=== PATIENT | female | born 1995 | race Caucasian/White ===

== ENCOUNTER 2018-11-21 23:06 | Emergency (ER) | payer OTHER ==
[~2018-11-21] VITALS: Ht 154.9 cm; Wt 59.0 kg
[2018-11-21 23:07] VITALS: BP 119/62
== END 2018-11-22 00:01 | disposition home or self-care (01) ==
LOC: ER 23:06
DX: S61.211A Laceration without foreign body of left index finger without damage to nail, initial encounter (principal); S61.213A Laceration without foreign body of left middle finger without damage to nail, initial encounter; W26.0XXA Contact with knife, initial encounter; Y92.89 Other specified places as the place of occurrence of the external cause; Y93.89 Activity, other specified; Y99.8 Other external cause status

== ENCOUNTER 2020-10-16 11:52 | Inpatient (IN) | payer OTHER ==
[~2020-10-16] VITALS: Ht 154.9 cm; Wt 64.4 kg
[2020-10-16 12:06] VITALS: BP 104/69
[2020-10-16] MEDS ORDERED: sulfasalazine PO (12:36)
[2020-10-16] MEDS ORDERED: LEXAPRO20 MG PO (12:37)
[2020-10-16 12:48] LABS: HEMATOCRIT 32.3 % (37.0-47.0); HEMOGLOBIN 10.8 gm/dL (12.0-15.0); MCH 28.9 pg (26.0-34.0); MCHC 33.4 g/dL (28.0-37.0); MCV 86.6 fL (80.0-100.0); PLATELET COUNT 505 thou/uL (150-400); RBC 3.73 mil/uL (4.20-5.00); RDW 13.5 % (10.5-14.5)
[2020-10-16 12:59] LABS: CALCIUM 8.4 mg/dL (8.5-10.1); CREATININE 0.9 mg/dL (0.6-1.0); POTASSIUM 3.3 mmol/L (3.5-5.1)
[2020-10-16 13:05] LABS: ALBUMIN 2.4 g/dL (3.4-5.0); TOTAL BILIRUBIN 0.4 mg/dL (0.2-1.0); TOTAL PROTEIN 7.2 g/dL (6.4-8.2)
[2020-10-16 13:57] LABS: ABSOLUTE NEUTROPHILS 5.7 thou/uL (1.4-8.2)
[2020-10-16 13:59] LABS: ANISOCYTOSIS 1+; POLYCHROMASIA 1+
[2020-10-16 16:32] LABS: URINE BILIRUBIN NEGATIVE (Negative); URINE BLOOD NEGATIVE (Negative); URINE CLARITY CLEAR; URINE COLOR YELLOW; URINE GLUCOSE-RANDOM* NEGATIVE (Negative); URINE KETONES 1+ (Negative); URINE LEUKOCYTES-REFLEX NEGATIVE (Negative); URINE NITRITE-REFLEX NEGATIVE (Negative); URINE PROTEIN (DIPSTICK) NEGATIVE (Negative); URINE SPECIFIC GRAVITY <= 1.005 (1.005-1.035); URINE UROBILINOGEN 0.2 E.U./dl (0.2-1.0)
[2020-10-16 17:02] VITALS: BP 108/74
[2020-10-16 17:10] VITALS: BP 108/74
[2020-10-16 18:11] VITALS: BP 112/64
--- NOTE | 2020-10-16 19:06 | NUR ---
PT ARRIVED TO FLOOR PER CART AT 1730. ADMISSION HX,ASSESSMENT AND CAREPLAN COMPLETED.CLEAR LIQ TRAY GIVEN AND WELL TOLERATED.PT AUNT AT ASSISTING WITH CARE.REPORT OFF TO AMITA RN.
[2020-10-16 21:07] VITALS: BP 107/65
--- NOTE | 2020-10-17 04:11 | NUR ---
ASSUMED CARE OF PT AT SHIFT CHANGE. PT IS AOX4 ANG LETS NEEDS BE KNOWN. PT IS UP AD GERRI. ASSESSMENT CHARTED. PT REPORTED SOME BACK PAIN; PRNS PROVIDED. PT DENIED NAUSEA OR SOA. IVF CONTINUED. PT WAS ABLE OT GET COMFORTABLE AND SLEEP PART OF THE SHIFT. VSS AND NO S/S OF ACUTE DISTRESS. WILL CONTINUE TO MONITOR.
[2020-10-17 04:36] VITALS: BP 113/72
[2020-10-17 06:27] LABS: HEMATOCRIT 25.7 % (37.0-47.0); MCH 28.9 pg (26.0-34.0); MCHC 33.7 g/dL (28.0-37.0); MCV 85.7 fL (80.0-100.0); RDW 13.4 % (10.5-14.5); WBC 6.8 thou/uL (4.0-11.0)
[2020-10-17 06:32] LABS: HEMOGLOBIN 8.7 gm/dL (12.0-15.0)
[2020-10-17 07:26] VITALS: BP 122/60
--- NOTE | 2020-10-17 08:12 | EKG ---
[facility] [employer] [address] ELECTROCARDIOGRAM REPORT Name: JEAN GUILLAUME Room #: 458-P ADM IN M.R.#: [id number] Admission: 10/16/20 Attend Phys: Nolvia Keating Discharge: Date of : [birth year] Report #: [id number] [facility] ED Test Date: 2020-10-16 Test Time: 12:08:21 Pat Name: JEAN GUILLAUME Department: Room: 458 Gender: F Wireless Technician: ENOCH : 1995 Requested By: Aylin Mansfield Order Number: [id number] MD: Nii Murrieta Measurements Intervals [place] Rate: 136 P: 80 CO: 113 QRS: 67 QRSD: 86 T: -3 QT: 287 QTc: 432 Interpretive Statements Sinus tachycardia LAE, consider biatrial enlargement RSR' in V1 or V2, right VCD or RVH No previous ECG available for comparison Electronically Signed On 10-17-2020 8:12:18 CDT by Nii Murrieta [email or web address] <ELECTRONICALLY SIGNED> By: Nii Murrieta MD, [facility] 10/17/20 0812 [id number] [id number] Nii Murrieta MD, FACC /EPI
--- NOTE | 2020-10-17 16:38 | NUR ---
Assumed pt care at 7am.Pt in bed very miserable due to bloody stool early this morning.Emotional support given.Stool sample sent to lab as ordered.Assessment completed.vss but elevated temp and heart rate noted.Dr Keating notified,order noted.Tylenol given with relief.Dr Burk here later this afternoon,no new order noted.Medicated pt with norco mid morning for back ache rated 5/10. Partial relief noted.Aunt at bs most of the time this afternoon visiting.Will continue to monitor.
[2020-10-17 19:21] VITALS: BP 124/79
[2020-10-17 21:59] LABS: HEMATOCRIT 27.6 % (37.0-47.0); HEMOGLOBIN 9.5 gm/dL (12.0-15.0)
--- NOTE | 2020-10-18 04:46 | NUR ---
ASSUMED CARE OF PT AT SHIFT CHANGE. PT IS AOX4 AND LETS NEEDS BE KNOWN. FALL PRECAUTION IN PLACE FOR SAFETY. PT RAN ST ON TELE. PT REPORTED SOME BACK PAIN; PRNS PROVIDED. BOWLING ALLEY MECHANIC NOTIFIED RE TACHYCARDIA AND LACK OF ABX. ORDERS RECEIVED AND STARTED. PT HAD 4X BLOODY BM THIS SHIFT. HGB STABLE. PT WAS ABLE TO GET COMFORTABLE AND SLEEP PART OF THE SHIFT. VSS AND NO S/S OF ACUTE DISTRESS. WILL CONTINUE TO MONITOR.
[2020-10-18 05:32] LABS: HEMATOCRIT 26.8 % (37.0-47.0); HEMOGLOBIN 8.9 gm/dL (12.0-15.0); MCHC 33.3 g/dL (28.0-37.0); MCV 86.9 fL (80.0-100.0); RBC 3.09 mil/uL (4.20-5.00); RDW 13.6 % (10.5-14.5); WBC 7.6 thou/uL (4.0-11.0)
[2020-10-18 05:39] LABS: CALCIUM 7.5 mg/dL (8.5-10.1); CREATININE 0.5 mg/dL (0.6-1.0); POTASSIUM 3.1 mmol/L (3.5-5.1)
[2020-10-18 07:35] VITALS: BP 119/70
[2020-10-18 15:35] VITALS: BP 114/73
--- NOTE | 2020-10-18 18:09 | NUR ---
ASSUMED CARE OF PATIENT AT SHIFT CHANGE. ASSESSMENT CHARTED. MEDICATIONS ADMINISTERED PER EMAR. VSS. PATIENT IS A&OX4 AND MAKES NEEDS KNOWN. AUNT STATES SHE IS DEVELOPMENTALLY DELAYED AND IS AT BEDSIDE. PATIENT STILL IS HAVING BLOODY STOOLS; HGB & HCT REMAIN STABLE BUT STILL LOW. PATIENT HAS HAD A HIGH HR SINCE ON TELE WHICH SHOOTS UP TO 150'S WHEN GETTING UP/AMBULATING. PATIENT HAD AN EPISODE OF NAUSEA/VOMITING X1 THIS DAY; DR JAIN MADE AWARE AND ZOFRAN IS NOW AVAILABLE. ABX INFUSING W NO ISSUES ALONG W FLUIDS. PATIENT STATING PATIENT VOICING PAIN THROUGHOUT ENTIRE SHIFT, PARTIALLY RELIEVED WITH IV ANALGESIC. PATIENT REMAINS ON CLR LIQUID DIET BUT WILL BE NPO AFTER MIDNIGHT AFTER COMPLETING BOWEL PREP FOR COLONOSCOPY TOMORROW. PATIENT REMAINS A STANDBY ASSIST DUE TO IV & LOSING BLOOD; CALLS OUT NEEDED. NO FURTHER ISSUES NOTED OR VOICED BY PATIENT. WILL CONTINUE TO MONITOR AND FOLLOW PLAN OF CARE
[2020-10-18 20:30] VITALS: BP 116/75
[2020-10-19 07:30] VITALS: BP 120/63
--- NOTE | 2020-10-19 08:00 | NUR ---
ASSUMED CARE OF PT AT SHIFT CHANGE. PT IS AOX4 AND LETS NEEDS BE KNOWN. FALL PRECAUTION IN PLACE. PT HAD 4X BLOODY BM THIS SHIFT. PT FINISHED 70% OF BOWEL PREP; CLEAR BM NOTED. PT IS TACHYCARDIC 120S AT REST AND 150S WITH ACTIVITY. ASSISTANT RESEARCH SCIENTIST NOTIFIED; NO NEW ORDERS RECEIVED. PT PLACED NPO AT MIDNIGHT. REPORT GIVEN TO ONCOMING RN.
[2020-10-19 15:35] VITALS: BP 134/84
--- NOTE | 2020-10-19 16:20 | NUR ---
PT WAS ADMITTED RELATED TO ABD PAIN. CM REIEWED CHART AND SPOKE WITH CARE TEAM. CM ATTEMPTED TO VISIT PT TWICE THIS DAY BUT SHE WAS BUSY. PT WAS HAVING AN EGD AND COLONOSCOPY THIS DAY. PT WAS VOMITING THIS AFTERNOON. PT IS ON IV CIPRO AND FLAGYL. CM FOLLOWING REGARDING DC PLANNING.
--- NOTE | 2020-10-19 19:12 | NUR ---
Assumed pt care at 7am.Pt in bed very quiet and waiting for gi lab to fruit picker machine operator for procedure.Assessment completed.vss but tachy. Dr Keating notified and he ordered telemetry to be dc.Pt aunt here,updates given and wanted Dr Payne to update her after pt completed colonoscopy.Pt left for gi lab at 12noon and returned to floor at 1600 in stable condition.Clear liq tray given and well tolerated.Pt was happy this evening smiling and wanted to ambulate alter this evening. Report off to noc rn.
[2020-10-19 22:31] VITALS: BP 108/96
--- NOTE | 2020-10-20 05:41 | NUR ---
ASSUMED CARE OF PT AT SHIFT CHANGE. PT IS AOX4 ANDD LETS NEEDS BE KNOWN. FALL PRECAUTION IN PLACE. ASSESSMENT CHARTED. PT HAD 2X BMS THIS SHIFT. PT WAS MORE COMFORTABLE THIS SHIFT AND WAS ABLE TO SLEEP COMFORTABLY. NO COMPLAINTS OF NAUSEA OR VOMITING THIS SHIFT. VSS AND NO S/S OF ACUTE DISTRESS. WILL CONTINUE TO MONITOR.
[2020-10-20 07:24] VITALS: BP 110/68
[2020-10-20 10:36] LABS: HEMATOCRIT 24.6 % (37.0-47.0); HEMOGLOBIN 8.2 gm/dL (12.0-15.0); MCH 28.4 pg (26.0-34.0); MCHC 33.4 g/dL (28.0-37.0); MCV 84.9 fL (80.0-100.0); RBC 2.89 mil/uL (4.20-5.00); RDW 14.1 % (10.5-14.5); WBC 7.2 thou/uL (4.0-11.0)
--- NOTE | 2020-10-20 12:05 | NUR ---
CM FOLLOWED UP WITH PT AT BEDSIDE THIS DAY. SHE HAD COLONOSCOPY YESTERDAY. PT INDICATED SHE LIVES IN A HOUSE WITH HER AUNT AND UNCLE. 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 PT INDICATED SHE PLANS TO RETURN HOME ONCE MEDICALLY STABLE. CM FOLLOWING REGARDING DC PLANNING.
[2020-10-20 19:22] VITALS: BP 118/63
--- NOTE | 2020-10-20 20:07 | NUR ---
ASSUMED CARE OF PATIENT AT SHIFT CHANGE. ASSESSMENT CHARTED. MEDICATIONS ADMINISTERED PER EMAR. VSS. PATIENT IS A&OX4 AND MAKES NEEDS KNOWN. PATIENT IS A SBA AND CALLS FOR HELP NEEDED. FLUIDS INFUSING ON R HAND; GENERALIZED EDEMA NOTED & PATIENT TOLERATING PO INTAKE WELL. PROVIDER SPOKE WITH PATIENT/AUNT AND INDICATED PATIENT MAY D/C HOME TOMORROW. PATIENT STILL HAS ACTIVE FLARE UP OF UC; BLOODY STOOLS CONTINUNE. ON FULL LIQUID DIET DENYING N/V. PATIENT VOICES PAIN GETTING BETTER AND DID NOT ASK FOR PAIN MEDS THIS SHIFT. PATIENT VOICED NO FURTHER NEEDS. ENDORSED TO ONCOMING NURSE
--- NOTE | 2020-10-21 03:13 | NUR ---
PT CARE ASSUMED WITH PT IN BED WITH AUNT AT BEDSIDE.PT IS A/OX4.PT IS UP WITH STANDBY ASSIST TO BATHROOM.PT C/O PAIN AND PAIN MANGED WITH MORPHINE WITH RELLIEF.IV ACCESS ON RH SL.PT HAD NO STOOL FOR ME TILL THIS TIME.PT IS ON ROOM AIR.WILL CONTINUE TO MONITOR PER POC
[2020-10-21 07:20] VITALS: BP 117/64
[2020-10-21] MEDS ORDERED: PREDNISONE 10 M10 MG PO (11:53)
[2020-10-21 14:39] VITALS: BP 117/64
--- NOTE | 2020-10-21 15:16 | NUR ---
CARE TEAM INDICATED THAT PT IS MEDICALLY STABLE TO DC HOME THIS DAY. PT HAS TRANSPORT HOME VIA FAMILY. NO OTHER CM INTERVENTION INDICATED. CASE CLOSED.
--- NOTE | 2020-10-21 15:30 | NUR ---
Assumed pt care at 7am.Pt in bed very relaxed and excited about going home today.Assessment completed.vss but hr grater than 100bpm.Pt c/o no pain or bloody stool.Dr Keating here,order noted. Pt aunt came to visit early this shift and said her fiance will pick pt up after work.Dc summary compile and reviewed with pt.Tariq michele dc'd.At 1530,pt dc home per wc accompanied by this rn.
[2020-10-21 22:06] LABS: HAV IgM AB (ANTI-HAV IgM) Negative (Negative); HEPATITIS B SURFACE AG Negative (Negative); HEPATITIS C VIRUS AB <0.1 (0.0-0.9)
--- NOTE | 2020-10-22 15:08 | PATH ---
[facility] [place] [address] PATHOLOGY RPT PROCEDURE Name: JEAN GUILLAUME Room #: 458-P DIS IN M.R.#: [id number] Admission: 10/16/20 Date of : [birth year] Discharge: 10/21/20 Report #: [id number] Path Case #: [id number] [facility] Accession Number: [id number] . 01 Material submitted: . colon - RANDOM COLON BIOPSY . 01 Clinical history: . EGD,COLONOSCOPY ABD PAIN,N/V . 02 Diagnosis: Large intestinal mucosa, random colon, endoscopic biopsy: - Xdfftqmx-wm-jxuppg acute colitis identified in all fragments sampled. - Negative for dysplasia or malignancy. . (IUV:mml; 10/22/2020) QLM 10/22/2020 1313 Local . 02 Comment: Sections of the colonic mucosa designated "random colon" show focal cryptitis, and a moderately cellular lamina propria composed predominantly of lymphocytes and plasma cells and occasional eosinophils. Surface ulceration is not identified. There are no parasites, granulomas or viral inclusions. The process affects all the fragments with a similar intensity. Given the description, the differential diagnosis includes ulcerative colitis, Crohn's disease, medication or drug-induced colitis, or acute diverticulitis amongst other possibilities. Lack of surface ulceration argues against Clostridium difficile colitis. Features are not supportive of ischemic colitis. Please correlate with clinical as well as endoscopic findings. . (IUV:mml; 10/22/2020) . 02 Electronically signed: . Pat Hendrickson MD, Pathologist NPI- [id number] . 01 Gross description: . The specimen is received in formalin, labeled "Jean Guillaume, random colon biopsy". Received are multiple segments of pale hinton tissue ranging in size from 0.3 to 0.6 cm in maximum dimensions. The specimen is submitted entirely in cassette A1.([facility]; 10/21/2020) [facility] 10/21/2020 [facility] Local . 02 Pathologist provided ICD-10: K52.[address] [address] PATHOLOGY RPT PROCEDURE Name: JEAN GUILLAUME Room #: 458-P DIS IN M.R.#: [id number] Admission: 10/16/20 Date of : [birth year] Discharge: 10/21/20 Report #: [id number] Path Case #: [id number] . 02 CPT . 259151 Specimen Comment: A courtesy copy of this report has been sent to [phone] Specimen Comment: [phone] Specimen Comment: Report sent to / DR GARNER Performed at: [address], [place] [id number] MD Ramesh Garcia MD Phone: [phone] Performed at: [address] [id number] MD Pat Hendrickson MD Phone: [phone]
== END 2020-10-21 15:30 | disposition home or self-care (01) | DRG 386 ==
LOC: ER 11:52 → EROBS 17:12 → 4W 17:40
PROVIDERS: Nurse Practitioner; Nurse Practitioner Family; Physician Assistant; ADMIT Hospitalist; ATTEND Hospitalist
DX: K51.90 Ulcerative colitis, unspecified, without complications (principal); K92.1 Melena; K35.80 Unspecified acute appendicitis; D62 Acute posthemorrhagic anemia; K51.00 Ulcerative (chronic) pancolitis without complications; E87.6 Hypokalemia; N28.1 Cyst of kidney, acquired; D64.9 Anemia, unspecified; Z20.822 Contact with and (suspected) exposure to COVID-19
CPT/HCPCS: 10040; 10045; 10047; 62110; 62900; 70005

== ENCOUNTER 2020-10-23 06:38 | Inpatient (IN) | payer OTHER ==
[2020-10-23] VITALS (8 sets, daily range): BP systolic 110–127; BP diastolic 56–83
[~2020-10-23] VITALS: Ht 154.9 cm; Wt 66.2 kg
--- NOTE | ~2020-10-23 | EMS ---
[facility] [address] [place] [address] EMS Patient Care Report Name: JEAN GUILLAUME Room #: 359-P ADM IN M.R.#: [id number] Admission: 10/23/20 Attend Phys: Raul Walker MD Discharge: Date of : [birth year] Report #: [id number] THIS REPORT FOR: //name// Report Transmitted: 10/26/2020 14:42 EMS Care Summary [place], [place]/[facility] Incident [id number] @ 10/23/2020 06:01 Incident Location [address] [place] [address] Patient JEAN GUILLAUME Female, 25 Years 1995 Patient Address [address] [place] [address] Patient History Colitis, Patient Allergies No known allergies, Patient Medications Unknown, Chief Complaint lower GI bleed Disposition Transported No Lights/[place] Dispatch Reason Hemorrhage/Laceration Transported To [facility] Narrative Initially dispatched with [facility] for hemorrhage. Upon EMS arrival patient was found laying supine on the floor of her living room, pale in color, lethargic, CAOx4. Patient's family reports that the patient was diagnosed with Colitis a couple of weeks ago. Patient stated that she had multiple bright red [facility] [address] [place] [address] EMS Patient Care Report Name: JEAN GUILLAUME Room #: 359-P ADM IN .Alexandro.#: [id number] Admission: 10/23/20 Attend Phys: Raul Walker MD Discharge: Date of : [birth year] Report #: [id number] bowel movements yesterday and last night. She denied having any pain, just weakness. Family reported that they found the patient passed out, face down in her bedroom. They stated that they had attempted to walk her to their car but could not make it past the living room. Derrick building mover was placed under the patient, she was carried to the stretcher, secured, and loaded into the ambulance. Patient was found to be hypotensive and was placed in Trendelenburg position. cardiac monitor showed Sinus Tachycardia. Patient was transported to [facility] without incident. Full report was given to RN prior to signing this document. Initial Vitals @06:24P: 133,BP: 94/65,Glucose: 230,CO: 2,SpO2: 96, @06:20P: 135,CO: 3,SpO2: 97, @06:22P: 133,R: 18,BP: 74/60,GCS: 15,CO: 4,SpO2: 98,Revised Trauma: 10,SD Suspected: false @06:18P: 147,R: 18,BP: 84/55,Pain: 0/10,GCS: 15,SpO2: 98,Revised Trauma: 11, @06:30P: 126,R: 18,BP: 75/47,GCS: 15,SpO2: 97,Revised Trauma: 10, Assessments @06:11MENTAL:Other,SKIN:Pale,HEENT:Head/Face: No Abnormalities,Eyes: No Abnormalities,Neck/Airway: No Abnormalities,LUNG SOUNDS:ABDOMEN:PELVIS//GI:Rectal Bleeding,EXTREMITIES:Left Arm: No Abnormalities,Right Arm: No Abnormalities,Left Leg: No Abnormalities,Right Leg: No Abnormalities,PULSE:NEURO:Weakness Right-Sided,Weakness Left-Sided, Impression Gastrointestinal hemorrhage Procedures @06:11ALS AssessmentResponse: UnchangedSucceeded@06:22Normal Saline (.9% NaCl) 10cc (18 ga) Site: Antecubital-RightResponse: UnchangedSucceeded@06:203-Lead ECGResponse: UnchangedSucceeded@06:23Normal Saline (.9% NaCl) 400cc (18 ga) Site: Antecubital-RightResponse: UnchangedSucceeded Timeline 06:00,Call Received 06:00,Dispatch Notified 06:01,Dispatched 06:03,En Route 06:09,On Scene 06:11,At Patient 06:11,ALS Assessment,Response: UnchangedSucceeded, 06:18,BP: 84/55 M,PULSE: 147,RR: 18 R,SPO2: 98 Ox,ETCO2: ,BG: ,PAIN: 0,GCS: 15, 06:20,3-Lead ECG,Response: UnchangedSucceeded, 06:20,BP: / M,PULSE: 135,RR: R,SPO2: 97 Ox,ETCO2: ,BG: ,PAIN: ,GCS: , 06:22,Normal Saline (.9% NaCl) 10cc 18 ga Site: Antecubital-Right,Response: [facility] [address] [place] [address] EMS Patient Care Report Name: JEAN GUILLAUME Room #: 359-P ADM IN M.R.#: [id number] Admission: 10/23/20 Attend Phys: Raul Walker MD Discharge: Date of : [birth year] Report #: [id number] UnchangedSucceeded, 06:22,BP: 74/60 M,PULSE: 133,RR: 18 R,SPO2: 98 Ox,ETCO2: ,BG: ,PAIN: ,GCS: 15, 06:23,Normal Saline (.9% NaCl) 400cc 18 ga Site: Antecubital-Right,Response: UnchangedSucceeded, 06:24,BP: 94/65 M,PULSE: 133,RR: R,SPO2: 96 Ox,ETCO2: ,B,PAIN: ,GCS: , 06:27,Depart Scene 06:30,BP: 75/47 M,PULSE: 126,RR: 18 R,SPO2: 97 Ox,ETCO2: ,BG: ,PAIN: ,GCS: 15, 06:35,At Destination 06:44,Call Closed Disclaimer v1.1 Copyright 2020 [employer] This EMS Care Summary contains data elements from the applicable legal record (which may be displayed differently). It is designed to provide pertinent information for the following purposes: continuity of care, clinical quality, and state data reporting. The complete legal record is available to ED staff and administrators of the receiving hospital in [employer]'s Patient Tracker. All data is provided "as is."
[~2020-10-23 06:38] MED LIST: LEXAPRO20 MG PO; PREDNISONE 10 M10 MG PO; sulfasalazine PO
[2020-10-23 07:03] LABS: WBC 8.9 thou/uL (4.0-11.0)
[2020-10-23 07:05] LABS: MCH 28.2 pg (26.0-34.0); MCHC 32.4 g/dL (28.0-37.0); MCV 87.1 fL (80.0-100.0); PLATELET COUNT 488 thou/uL (150-400); RBC 2.03 mil/uL (4.20-5.00); RDW 14.4 % (10.5-14.5)
[2020-10-23 07:07] LABS: HEMATOCRIT 17.7 % (37.0-47.0); HEMOGLOBIN 5.7 gm/dL (12.0-15.0)
[2020-10-23 07:08] LABS: CALCIUM 6.9 mg/dL (8.5-10.1); POTASSIUM 3.2 mmol/L (3.5-5.1)
[2020-10-23 07:12] LABS: INR 1.34; PROTIME 14.4 Seconds (10.5-12.1)
[2020-10-23 07:14] LABS: ALBUMIN 1.3 g/dL (3.4-5.0); TOTAL BILIRUBIN 0.2 mg/dL (0.2-1.0); TOTAL PROTEIN 4.2 g/dL (6.4-8.2)
--- NOTE | 2020-10-23 07:26 | NUR ---
PT STATED SHE HAS HAD NO PRIOR BLOOD TRANFUSIONS
--- NOTE | 2020-10-23 07:41 | NUR ---
THE SIDE-EFFECTS AND RISK OF THE BLOOD TRANSFUSION WERE DISCUSSED WITH THE PT AND SHE PROVIDED VERBAL AND WRITTEN CONSENT FOR THE TRANSFUSION.
[2020-10-23 07:44] LABS: ABSOLUTE NEUTROPHILS 5.7 thou/uL (1.4-8.2); ANISOCYTOSIS 1+; HYPOCHROMASIA 1+; METAMYELOCYTES 2 %; NUCLEATED RBCS 2 /100WBC; PLATELET ESTIMATE NORMAL; POLYCHROMASIA SLIGHT
--- NOTE | 2020-10-23 08:56 | NUR ---
CALLED THE BLOOD BANK TO INQUIRE ABOUT THE BLOOD ORDERED.
--- NOTE | 2020-10-23 11:01 | EKG ---
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
--- NOTE | 2020-10-23 17:56 | NUR ---
PATIENT ADMIT TO UNIT AT 1200 [facility]. GIVEN 2ND UNIT BLOOD. NO REACTION NOTED. PATIENT VSS. HAD ONE SMALL RED BLOOD. PATIENT GENERLIZED WEAK. A/O X4. WILL KEEP MONITOR.
--- NOTE | 2020-10-23 18:09 | NUR ---
ASSUMED PATIENT CAR AT 0700. A/O X4. ANXIOUS. HAD A SMALL BM. ON FULL LIQUID DIET. NO N/V. DENAIES PAIN. SLOWLY TOWARDS POC GOALS.
[2020-10-23 20:41] LABS: HEMATOCRIT 30.6 % (37.0-47.0)
[2020-10-23 20:46] LABS: HEMOGLOBIN 10.7 gm/dL (12.0-15.0)
[2020-10-24 00:20] VITALS: BP 124/82
[2020-10-24 04:04] VITALS: BP 136/84
--- NOTE | 2020-10-24 05:10 | NUR ---
Pt. slept fair during the night. Vomitted x1 , zofran given with good relief. Ambulated to bathroom x1 then at times uses bedpan. Voided per bedpan and also had loose bm with dark red blood x3 this shift. VSS.
[2020-10-24 05:44] LABS: HEMOGLOBIN 9.6 gm/dL (12.0-15.0)
[2020-10-24 07:38] VITALS: BP 124/81
[2020-10-24 10:28] LABS: CALCIUM 7.6 mg/dL (8.5-10.1); CREATININE 0.5 mg/dL (0.6-1.0); MAGNESIUM 2.2 mg/dL (1.8-2.4); PHOSPHORUS 4.2 mg/dL (2.5-4.9); POTASSIUM 4.3 mmol/L (3.5-5.1)
[2020-10-24 11:08] VITALS: BP 124/89
[2020-10-24 14:10] LABS: HEMATOCRIT 29.5 % (37.0-47.0); HEMOGLOBIN 10.4 gm/dL (12.0-15.0)
[2020-10-24 15:11] VITALS: BP 126/84
--- NOTE | 2020-10-24 18:28 | NUR ---
ASSUMED PATIENT CARE AT 0700. A/O X4. HAD ONE BLOODY LIQUID STOOL. HG 10.6 SLOWLY TOWARDS POC GOALS.
[2020-10-24 20:22] VITALS: BP 123/74
[2020-10-25 04:00] VITALS: BP 133/82
--- NOTE | 2020-10-25 04:07 | NUR ---
Pt. stated she is feeling a little stronger and ate better at dinner time without throwing up. Ambulated with SBA to bathroom and had some dark red stool in bathroom. Tachycardic with activities. Denies any pain or shortness of breath.
[2020-10-25 06:03] LABS: WBC 12.1 thou/uL (4.0-11.0)
[2020-10-25 06:05] LABS: HEMATOCRIT 26.2 % (37.0-47.0); HEMOGLOBIN 8.9 gm/dL (12.0-15.0); MCH 28.8 pg (26.0-34.0); MCHC 33.8 g/dL (28.0-37.0); MCV 85.1 fL (80.0-100.0); RBC 3.08 mil/uL (4.20-5.00); RDW 14.5 % (10.5-14.5)
[2020-10-25 06:12] LABS: CALCIUM 7.7 mg/dL (8.5-10.1); CREATININE 0.5 mg/dL (0.6-1.0); MAGNESIUM 2.2 mg/dL (1.8-2.4); POTASSIUM 4.5 mmol/L (3.5-5.1)
[2020-10-25 07:23] VITALS: BP 129/92
--- NOTE | 2020-10-25 15:02 | NUR ---
INITIAL ASSESSMENT: SW reviewed chart and spoke with nursing and attending physician. Pt was admitted from home due to GI bleed. Pt hs had blood transfusion. Pt was recently hospitalized for similar dx last month. Pt with hx ulcerative colitis. Pt is on IV steroids. SW met with pt at bedside. Introduced role of SW. Pt is alert/orientated and reports she lives with her aunt and uncle. Prior to admission, pt was independent with ADLs. No use of DME. Pt denies having HH services or being in a post-acute care facility. Pt's PCP is Dr. Christine Stratton. Plan is for pt to discharge home when medically stable. SW is following to assist as needed with discharge planning.
[2020-10-25 15:28] VITALS: BP 124/81
--- NOTE | 2020-10-25 17:33 | NUR ---
ASSUMED PATIENT CARE AT 0700. A/O X4. HAD TWO LIGHT BLOOD TINGED STOOL. NO ABD PAIN.SLOWLY TOWARDS POC GOALS.
[2020-10-25 19:21] VITALS: BP 117/75
--- NOTE | 2020-10-25 22:27 | NUR ---
PT RESTING IN BED WATCHING TV. PT CHEERFUL SMILING. INTERACTS WHEN ASKED DIRECT QUESTIONS. PT DOES CALL FOR ASSISTANCE WITH AMBULATION. BLOODY STOOLS CONTINUES. BED ALARM ON.
[2020-10-26 02:58] LABS: HEMATOCRIT 27.5 % (37.0-47.0); HEMOGLOBIN 9.3 gm/dL (12.0-15.0); MCH 29.1 pg (26.0-34.0); MCHC 33.9 g/dL (28.0-37.0); MCV 85.9 fL (80.0-100.0); RBC 3.2 mil/uL (4.20-5.00); RDW 14.4 % (10.5-14.5); WBC 8.5 thou/uL (4.0-11.0)
[2020-10-26 05:05] VITALS: BP 120/82
[2020-10-26 08:13] VITALS: BP 115/74
--- NOTE | 2020-10-26 14:03 | NUR ---
SW reviewed chart and spoke with nursing and attending physician. Pt remains on IV steroids. Pt's diet being advanced. Awaiting Hep B DNA results. Plan is for pt to discharge home when medically stable. PAUL is following to assist as needed with discharge planning.
[2020-10-26 15:33] VITALS: BP 115/81
--- NOTE | 2020-10-26 18:15 | NUR ---
PATIENT STILL HAS LIGHT BLOODY STOOL. NOT TOLERATED SOFT DIET VERY WELL. SLOWLY TOWARDS POC GOALS.
[2020-10-26 18:53] VITALS: BP 120/72
--- NOTE | 2020-10-26 20:18 | NUR ---
PT VISITING WITH FAMILY, PT HAD SHOWER. HR INCREASES WITH ACTIVITY. PT DECLINED HS SNACK. EDEMA HANDS AND ANKLES REMAINS. PT CALLS FOR ASSIST.
[2020-10-27 04:15] VITALS: BP 128/75
[2020-10-27 06:24] LABS: HEMATOCRIT 29.9 % (37.0-47.0); HEMOGLOBIN 9.8 gm/dL (12.0-15.0); MCH 28.4 pg (26.0-34.0); MCHC 32.8 g/dL (28.0-37.0); MCV 86.4 fL (80.0-100.0); RBC 3.47 mil/uL (4.20-5.00); RDW 14.5 % (10.5-14.5); WBC 13.9 thou/uL (4.0-11.0)
[2020-10-27 07:34] VITALS: BP 109/75
--- NOTE | 2020-10-27 09:46 | HC ---
[facility] [place] [address] CONSULTATION Name: JEAN GUILLAUME Room #: 359-P ADM IN M.R.#: [id number] Admission: 10/23/20 Attend Phys: Raul Walker MD Discharge: Date of : [birth year] Report #: [id number] THIS REPORT FOR: cc: [facility] - Clinic physician unknown [facility] - Clinic physician unknown Forest Rush MD ~ cc: Raul Walker MD, Elmer Vogel DO DATE OF SERVICE: 10/23/2020 HISTORY OF PRESENT ILLNESS: The patient is a 25-year-old female with a recurrent GI bleed, history of ulcerative colitis diagnosed several years ago. The patient is a fairly good historian; however, she has a chronic caregiver due to developmental disabilities. Currently, her caregiver is her aunt, which she lives with at this time. She was hospitalized last week here for GI bleed and abdominal pain. She underwent a CT scan of the abdomen and pelvis on 10/16/2020 showing extensive circumferential wall thickening within the colon sparing only the cecum and the most proximal descending colon consistent with history of ulcerative colitis. There was also mild dilation of the appendix at that time with a rim of enhancement. The patient was treated with IV antibiotics, Cipro and Flagyl, was also put on prednisone, at that time was taking sulfasalazine twice a day for the last few years. Her aunt reports a few small flares over the years, but not requiring hospitalization or prednisone at that time, only a change in diet. She was seen by my partner, Dr. Vogel and she underwent an EGD and colonoscopy on 10/19/2020 that showed severe colitis with deep ulcerations from the rectum to the hepatic flexure, normal appearing cecum and ascending colon at that time. Upper endoscopy was also performed the same day, which was normal. The patient was treated with IV steroids, did not require blood transfusion at that time, she did have a drop in her hemoglobin from admit of 10.8 to 8.2 on discharge. Her C. diff was negative x2. All stool studies were negative. test negative. Her hepatitis B core antibody IgM, however, was positive. Her surface antigen was negative. Her ant believe she is up to date on all her vaccinations for hepatitis A and C were negative. The patient has had a previous laparoscopic cholecystectomy. In the last few days, she began having further bleeding, had a syncopal episode at home, was passing clots and was very fatigued in general, was denying any abdominal pain in general. She was tachycardic and hypotensive on admission. Her hemoglobin on admission today is 5.7, 2 units of packed cells have been ordered. The first one is currently being transfused in the ER at this time. The patient denies any abdominal pain currently. She does report recent nausea and vomiting. Her blood pressure is improving at this time. She is less tachycardic. She denies any fevers or chills. No chest pain or shortness of breath currently. She was given one dose of methylprednisolone 125 mg in the emergency room. PAST MEDICAL HISTORY: Ulcerative colitis, recently discharged on prednisone 50 mg per day. History of anxiety, developmental disability, previous laparoscopic [address] [address] CONSULTATION Name: JEAN GUILLAUME Room #: 359-P ADM IN M.R.#: [id number] Admission: 10/23/20 Attend Phys: Raul Walker MD Discharge: Date of : 89 Report #: [id number] cholecystectomy in 2016. MEDICATIONS AT HOME. Sulfasalazine 500 mg p.o. b.i.d., Lexapro, prednisone was 50 mg on a daily basis. REVIEW OF SYSTEMS: Per HPI. SOCIAL HISTORY: Denies any tobacco or alcohol use. FAMILY HISTORY: No family history of colon cancer or inflammatory bowel disease. PHYSICAL EXAMINATION: VITAL SIGNS: Temperature is 98.2; pulse 108, on admission, she was 134; blood pressure currently is 113/72, on admission, it was 110/56; respiratory rate is 15; O2 sats are 98% on room air. GENERAL: She is alert and oriented x3 in no acute distress. The patient is pale and appears fatigued in general. HEENT: Sclerae nonicteric. Oropharynx clear. Lips are pale. CARDIOVASCULAR: Regular rhythm. Tachycardic. CHEST: Clear to auscultation bilaterally. ABDOMEN: Soft. She is nontender, nondistended. Normoactive bowel sounds. EXTREMITIES: No cyanosis, clubbing or edema. LABORATORY DATA: Sodium 142, potassium 3.2, chloride 107, bicarbonate 27, BUN 12, creatinine 1.0, glucose 174, AST is 11. Lipase one is 69, total bilirubin 0.2, calcium 6.9, phosphorus 4.7, alkaline phosphatase 45, ALT is 12, total protein 4.2, albumin 1.3. INR 1.34. WBC is 8.9, hemoglobin 5.7, MCV 87.1, platelet count is 488. test negative. ASSESSMENT AND PLAN: Ulcerative colitis. The patient with severe ulcerative colitis noted on recent colonoscopy. Despite recent hospitalization with antibiotics and prednisone, the patient is having a significant further bleeding. Admit hemoglobin of 5.7. She has been ordered 2 units of packed cells starting that at this time. She did have syncopal episode at home, was hypotensive and tachycardic. This is improving at this time. I had a long discussion with the patient and her aunt today, I would recommend high dose steroids while in the hospital, we will start Solu-Medrol t.i.d. The patient will eventually likely need a biologic for control of her severe ulcerative colitis. Of note, her biopsies were consistent with ulcerative colitis from recent colonoscopy. The patient will need a TB test prior to starting biologics. Of note, her hepatitis B core antibody IgM was positive. It is unclear if she has been vaccinated to hepatitis B in the past. Her hepatitis B surface antigen test was negative. These were performed on 10/21/2020. Her hepatitis A and C antibodies were negative. We will continue to follow liver [address] [address] CONSULTATION Name: JEAN GUILLAUME Room #: 359-P ADM IN M.R.#: [id number] Admission: 10/23/20 Attend Phys: Raul Walker MD Discharge: Date of : 89 Report #: [id number] function tests, which are normal at this time. We will start clear liquids, antiemetics as needed. Continue to monitor hemoglobin closely. Thank you for allowing me to participate in her care. <ELECTRONICALLY SIGNED> By: Forest Rush MD 10/27/20 0946 0920 2047 Forest Rush MD /adalid
[2020-10-27 15:25] VITALS: BP 113/77
--- NOTE | 2020-10-27 18:43 | NUR ---
PATIENT REPORTS ONE BM THIS SHIFT WITH SMALL AMOUNTS OF BLOOD NOTED. PATIENT DID NOT SHOW STAFF BM. PATIENT REPORTS NO COMPLAINTS OR CONCERNS. VSS.
[2020-10-27 19:18] VITALS: BP 117/76
[2020-10-28 03:25] LABS: HEMATOCRIT 29.2 % (37.0-47.0); HEMOGLOBIN 9.9 gm/dL (12.0-15.0); MCH 29.1 pg (26.0-34.0); MCV 85.4 fL (80.0-100.0); RBC 3.42 mil/uL (4.20-5.00); RDW 14.6 % (10.5-14.5); WBC 10.2 thou/uL (4.0-11.0)
[2020-10-28 03:36] VITALS: BP 125/83
[2020-10-28 03:48] LABS: ALBUMIN 2.2 g/dL (3.4-5.0); CALCIUM 8.2 mg/dL (8.5-10.1); CREATININE 0.5 mg/dL (0.6-1.0); POTASSIUM 4.2 mmol/L (3.5-5.1); TOTAL BILIRUBIN 0.4 mg/dL (0.2-1.0); TOTAL PROTEIN 5.9 g/dL (6.4-8.2)
[2020-10-28 14:23] LABS: HEMATOCRIT 32.5 % (37.0-47.0); HEMOGLOBIN 10.7 gm/dL (12.0-15.0)
--- NOTE | 2020-10-28 15:04 | NUR ---
SW reviewed chart and spoke with nursing and attending physician. Pt remains on IV steroids. Awaiting results of Hep B DNA. Pt may be started on Humira, pending results of test. Plan is for pt to discharge home when medically stable. PAUL is following to assist as needed with discharge planning.
[2020-10-28 15:37] VITALS: BP 116/78
--- NOTE | 2020-10-28 17:58 | NUR ---
TELEPHONE REPORT GIVEN TO GIUSEPPE ASHRAF. PATIENT WILL BE TRANSFERRING TO ROOM 453 AFTER SHOWER. NO CHANGES IN PREVIOUS ASSESSMENTS. PATIENT HAD ONE LARGE BLOODY STOOL, BRIGHT RED IN COLOR. NO VOMITING THIS SHIFT. TACHYCARDIA NOTED WITH AMBULATION OR ACTIVITIES.
--- NOTE | 2020-10-28 19:16 | NUR ---
PATIENT ARRIVED FROM AT APPROXIMATELY 1845. ORIENTED TO ROOM. DENIES PAIN. AUNT AT BEDSIDE. PATIENT TRANSFERRED FROM TO BED SBA AND STEADY GAIT. ENDORSED TO ONCOMING NURSES.
[2020-10-28 19:28] VITALS: BP 121/83
--- NOTE | 2020-10-29 02:55 | NUR ---
ASSUMED PT CARE AT 1925. INTRODUCED SELF TO PT. PT IS ALERT AND ORIENTED X4. PT TOLERATING ROOM AIR. PT GETS UP TO USE THE BR WITH MIN ASSSISTANCE. PT HAD A BLOODY STOOL ON THIS SHIFT. PT DID NOT VERBALIZE ANY CONCERNS AND NO VISISBLE SIGNS OF DISTRESS WAS NOTED. FALL PREACUTIONS IN PLACE. WILL CONTINUE TO MONITOR.
[2020-10-29 03:34] LABS: HEMATOCRIT 29.7 % (37.0-47.0); HEMOGLOBIN 9.9 gm/dL (12.0-15.0); MCH 28.6 pg (26.0-34.0); MCHC 33.3 g/dL (28.0-37.0); MCV 85.7 fL (80.0-100.0); RBC 3.47 mil/uL (4.20-5.00); RDW 14.7 % (10.5-14.5); WBC 9.8 thou/uL (4.0-11.0)
[2020-10-29 04:19] LABS: ALBUMIN 2.2 g/dL (3.4-5.0); CALCIUM 8.1 mg/dL (8.5-10.1); CREATININE 0.5 mg/dL (0.6-1.0); POTASSIUM 4.3 mmol/L (3.5-5.1); TOTAL BILIRUBIN 0.3 mg/dL (0.2-1.0); TOTAL PROTEIN 6.1 g/dL (6.4-8.2)
[2020-10-29 07:32] VITALS: BP 117/62
--- NOTE | 2020-10-29 13:24 | NUR ---
Nutrition: pt admitted with anemia, rectal bleeding and ulcerative colitis flair. PMH: UC. Pt voices no questions related to diet, states trying to choose line assigner, non greasy foods, limits fiber. Orders meals. Weights have bene stable and appetite is improved to 50-100% of meals past few days. Low nutrition risk.
--- NOTE | 2020-10-29 15:52 | NUR ---
Care team indicating that pt is progressing slowly toward goal of discharging home this aunt and uncle. GI indicating they plan to continue IV steroids. Await Hep B DNA. Can start on Humira biologic, if Hep B DNA negative. it is anticpated that pt will be able to dc home to self care once medically stable.
[2020-10-29 16:05] VITALS: BP 113/62
--- NOTE | 2020-10-29 20:02 | NUR ---
ASSUMED CARE OF PATIENT AT SHIFT CHANGE. ASSESSMENT CHARTED. MEDICATIONS ADMINISTERED PER EMAR. VSS. PATIENT IS A&OX4 AND IS ABLE TO VOICE NEEDS. PATIENT DOES CALL OUT WHEN NEEDING HELP AMBULATING DUE TO HER IV POLE. PATIENT DENYING PAIN THIS SHIFT. STATED SHE HAD A BM THAT WAS NOT BLOODY & BROWN COLORED HOWEVER PATIENT FLUSHED IT BEFORE NURSING STAFF COULD NOTE THE APPEARANCE. AFTER LUNCH, PATIENT HAD AN EPISODE OF EMESIS X1; PATIENT DENIED NAUSEA AFTERWARDS AND STATED "IT WAS BECAUSE THE FOOD I ATE WAS TOO GREASY". FLUIDS CONTINUE TO INFUSE. TOLERATED PO INTAKE OTHER THAN LUNCH WELL. NO FURTHER ISSUES NOTED. FREQUENT MONITORING CONTINUED THROUGHOUT SHIFT. ENDORSED TO AMITA. GIUSEPPE
[2020-10-29 20:47] VITALS: BP 112/68
--- NOTE | 2020-10-30 02:19 | NUR ---
ASSSUMED PT AT 1925. PT IS ALERT AND ORIENTED X 4. PT HAD N/V X1 ON THE AND WAS GIVEN MED FOR IT. PT HAD BLOODY STOOL(BRIGHT RED) AND C/O PAIN WHEN USING THE BR. PT COMPPALINED OF BACK PAIN 5/10 WHICH WOKE HER FROM SLEEP. PER PT" THIS IS THE FIRST TIME EXPERIENCNG BACK PAIN". CONTRACT CLERK [employer] WAS CALLED TO PUT ORDER IN FOR PAIN MEDS. FALL PRECAUTION IN PLACE. WILL CONTINUE TO MONITOR.
[2020-10-30 07:17] LABS: HEMATOCRIT 26.1 % (37.0-47.0); HEMOGLOBIN 8.6 gm/dL (12.0-15.0)
[2020-10-30 08:03] VITALS: BP 107/69
[2020-10-30 14:34] LABS: HEMATOCRIT 25.6 % (37.0-47.0); HEMOGLOBIN 8.5 gm/dL (12.0-15.0)
[2020-10-30 16:10] VITALS: BP 102/62
--- NOTE | 2020-10-30 19:52 | NUR ---
ASSUMED CARE OF PATIENT AT SHIFT [facility]. ASSESSMENT CHARTED. THIS DAY CARDIOLOGY WAS CONSULTED DUE TO HEART RATE INCREASING TO 180BPM. ONETIME BOLUS ORDERED & ABX STARTED. HEART RATE DID STABLIZE. SUPERVISOR [employer] INSTRCUTED PATIENT ON FLUID INTAKE; PATIENT AWARE AND COMPLIANT. STILL HAVING BLOODY STOOLS. VOICED NO FURTHER NEEDS. ENDORSED TO ONCOMING NURSE
[2020-10-30 20:00] VITALS: BP 120/75
--- NOTE | 2020-10-31 01:39 | NUR ---
ASSUMED PT CARE AT 1905. PT IS ALERT AND ORIETED X4. PT COMPLAINED OF NAUSEA BUT INITIALLY REFUSED MED FOR IT. PT LATER REQUESTED FOR MED FOR NAUSEA AND HAD EMESIS WHICH WAS WHITE. PT HAD BLOODY STOOL WHICH WAS DARK BROWN WITH SOME TRACES OF LIGHT RED BLOOD. PT IS A SBA AND CALLS FOR ASSISTANCE WITH THE IV POLE. PT DID NOT EXPRESS ANY MORE CONCERNS. FALL PRECAUTIONS IN PLACE WITH CALL LIGHT WITHIN REACH. WILL CONTINUE TO MONITOR.
[2020-10-31 07:53] VITALS: BP 112/75
[2020-10-31 12:55] LABS: HEMATOCRIT 24.6 % (37.0-47.0); HEMOGLOBIN 8.8 gm/dL (12.0-15.0); MCH 30.5 pg (26.0-34.0); MCHC 35.9 g/dL (28.0-37.0); MCV 85.1 fL (80.0-100.0); RBC 2.89 mil/uL (4.20-5.00); RDW 14.4 % (10.5-14.5); WBC 9.4 thou/uL (4.0-11.0)
[2020-10-31 13:03] LABS: CALCIUM 7.8 mg/dL (8.5-10.1); CREATININE 0.6 mg/dL (0.6-1.0); POTASSIUM 3.5 mmol/L (3.5-5.1)
--- NOTE | 2020-10-31 14:34 | EKG ---
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1995 Requested By: Gurdeep Escobedo Order Number: [id number] MD: Faisal Tubbs Measurements Intervals [place] Rate: 81 P: 71 AR: 112 QRS: 60 QRSD: 88 T: 44 QT: 355 QTc: 412 Interpretive Statements Sinus rhythm RSR' in V1 or V2, right VCD Compared to ECG 10/23/2020 06:56:01 RSR' in V1 or V2 now present Sinus tachycardia no longer present Electronically Signed On 10-31-2020 14:34:18 CDT by Faisal Tubbs [email or web address] <ELECTRONICALLY SIGNED> By: Faisal Tubbs MD, [facility] 10/31/20 1434 1445 1445 Faisal Tubbs MD, [facility] /EPI
[2020-10-31 15:00] VITALS: BP 112/70
[2020-10-31 15:37] VITALS: BP 111/71; BP 121/72
[2020-10-31 21:04] VITALS: BP 128/85
--- NOTE | 2020-11-01 00:09 | NUR ---
ASSISTED WITH PT CARE. PT AOX4 AND LETS NEEDS BE KNOWN. FALL PRECAUTION IN PLACE. PT REPORTED BACK PAIN; PRNS PROVIED. PT IS STILL HAVING BLOODY STOOLS X4 THUS FAR. PT IS STILL TACHY (150S) WITH ACTIVITY. PT DENIED NAUSEA OR SOA. ASSESSMENT CHARTED. VSS AND NO S/S OF ACUTE DISTRESS.
[2020-11-01 07:10] VITALS: BP 127/89
--- NOTE | 2020-11-01 14:50 | NUR ---
PT HAD FIRST HUMIRA INJECTION TODAY. GI INDIATED THAT PT WOULD NEED SECOND INJECTION IN TWO WEEKS. GI INDICATED THAT THEY AREN'T GOING TO BE ABLE TO SEE PT IN FOLLOW UP THEY DON'T [place]KE [place] MEDICAID. CM REACHED OUT TO [facility] AND LEFT A VM TO TRY TO ESTABLISH PT WITH FOLLOW UP [facility] THERE UPON DC. CM AWAITING RESPONSE CALL.
--- NOTE | 2020-11-01 15:00 | NUR ---
ASSUMED CARE OF PATIENT AT SHIFT CHANGE. ASSESSMENT CHARTED. MEDICATIONS ADMINISTERED PER EMAR. VSS; IMPROVING. PATIENT HR IS SR UNLESS GETTING UP. PATIENT IS A&OX4 WITH SOME DELAYS NOTED; ABLE TO VOICE NEEDS AND WITH STEADY GAIT. ABX INFUSING ON R AC W FLUIDS & NO ISSUES NOTICED. PATIENT DENIES PAIN THIS SHIFT & NO FURTHER ISSUES. HEP B RESULTS CAME BACK NEGATIVE & PATIENT ABLE TO START HUMIRA. MICHAEL John NP ADMINISTERED 1ST DOSE & PROVIDED EDUCATION TO PATIENT. CAREGIVER/AUNT PRESENT ALSO AND COMMUNICATED UNDERSTANDING. PATIENT CONTINUES TO HAVE BLOOD IN STOOLS. STILL SR ON MONITOR. RECIEVED SHOWER THIS DAY. TOLERATING PO INTAKE WELL. PROGRESSING WELL TOWARDS DISCHARGE; POSSIBLY TOMORROW 11/02. AUNT AT BEDSIDE. WILL CONTINUE TO MONITOR AND FOLLOW PLAN OF CARE.
[2020-11-01 15:10] VITALS: BP 114/76
[2020-11-01 15:43] LABS: HEMATOCRIT 31.8 % (37.0-47.0); HEMOGLOBIN 10.6 gm/dL (12.0-15.0)
[2020-11-01 20:00] VITALS: BP 125/78
--- NOTE | 2020-11-02 06:28 | NUR ---
patient had bloody stools throughout the shift. patient ambulates with steady gaits. fall precaution in place. patient denied pain or discomfort. patient in bed asleep at this time breathing regular and unlaboured.
[2020-11-02 08:46] VITALS: BP 101/67
[2020-11-02 09:03] VITALS: BP 130/87
[2020-11-02 11:04] VITALS: BP 130/87
--- NOTE | 2020-11-02 11:10 | NUR ---
CARE TEAM INDICATED THAT PT IS MEDICALLY STABLE TO DISCHARGE HOME WITH AUNT AND UNCLE THIS DAY. CM PUT PHONE NUMBER FOR [facility] IN PT'S [place]. CM HAD CALLED AND FAXED REFERRAL OVER THERE YESERDAY. THEY INDICATED THAT IT TAKES UP TO THREE DAYS FOR THE OFFICE TO GET THE CLINICAL INFO AND CONTACT THE PT TO SET UP APPOINTMENTS. CM NOTIFIED MICHAEL WITH GI HERE. SHE IS TO FOLLOW UP WITH OUR GI CLINIC FOR HUMIRA INJECTIONS UNTIL SHE IS ESTABLISHED WITH CARES AT [facility]. PT AND AUNT ARE AWARE AND AGREEABLE. NO OTHER CM INTERVENTION INDICATED. CASE CLOSED.
[2020-11-02] MEDS ORDERED: MESALAMINE4 GM/60 M2 RECTAL (11:59)
[2020-11-02] MEDS ORDERED: HYDROCODON-ACE1 EAC7 PO (11:59)
[2020-11-02] MEDS ORDERED: PREDNISONE 10 M10 MG PO (11:59)
[2020-11-02] MEDS ORDERED: ZOFRAN 4 MG ORAL4 MG PO (12:02)
[2020-11-02 13:58] LABS: HEMATOCRIT 30.3 % (37.0-47.0); HEMOGLOBIN 10.2 gm/dL (12.0-15.0)
[2020-11-02] MEDS ORDERED: METOPROLOL SUCC25 M1 PO (14:28)
--- NOTE | 2020-11-02 15:44 | EKG ---
[address] [employer] 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 : 1995 Requested By: Gurdeep Escobedo Order Number: [id number] MD: Nii Murrieta Measurements Intervals [place] Rate: 117 P: 72 [place]: 108 QRS: 69 QRSD: 93 T: 42 QT: 315 QTc: 440 Interpretive Statements Sinus tachycardia LAE, consider biatrial enlargement RSR' in V1 or V2, right VCD or RVH Baseline wander in lead(s) V1,V3 Compared to ECG 10/30/2020 14:45:12 Right ventricular hypertrophy now present Sinus rhythm no longer present Electronically Signed On 11-02-2020 15:44:33 CDT by Nii Murrieta [email or web address] <ELECTRONICALLY SIGNED> By: Nii Murrieta MD, [facility] 11/02/20 1544 1436 1436 Nii Murrieta MD, [facility] /EPI
--- NOTE | 2020-11-02 17:26 | NUR ---
Dr. Escobedo voiced that the patient is ok to be discharged. Discharge education given to the patient, voiced understanding.
== END 2020-11-02 18:09 | disposition home or self-care (01) | DRG 385 ==
LOC: ER 06:38 → EROBS 08:05 → 3W 11:50 → 4W 10-28 18:42
PROVIDERS: Emergency Medicine; Hospitalist; Nurse Practitioner; Specialist; ADMIT Internal Medicine; ATTEND Internal Medicine
PROC: 30233N1 Transfusion of Nonautologous Red Blood Cells into Peripheral Vein, Percutaneous Approach (ICD-10-PCS; principal; 2020-10-23)
DX: K51.911 Ulcerative colitis, unspecified with rectal bleeding (principal); E43 Unspecified severe protein-calorie malnutrition; D62 Acute posthemorrhagic anemia; F41.9 Anxiety disorder, unspecified; I95.9 Hypotension, unspecified; E86.1 Hypovolemia; Z79.899 Other long term (current) drug therapy; Z90.49 Acquired absence of other specified parts of digestive tract; Z68.27 Body mass index [BMI] 27.0-27.9, adult
CPT/HCPCS: 10045; 10879